=== PATIENT | female | born 1935 | race Caucasian/White ===

== ENCOUNTER 2021-04-28 13:15 | Outpatient (REF) | payer MEDICARE, SELFPAY ==
[2021-04-28 14:54] LABS: Syphilis Screen Nonreactive (Nonreactive)
[2021-04-28 15:00] LABS: Vitamin B12 357 pg/mL (200-900)
[2021-04-28 15:16] LABS: Erythrocyte Sedimentation Rate 12 MM/HR (0-20)
[2021-04-29 08:37] LABS: Lyme Abs Screen <0.90 index
== END 2021-04-28 13:16 | disposition home or self-care (01) ==
LOC: HO.LAB 13:15
PROVIDERS: Visit Provider Psychiatry & Neurology Neurology
DX: G30.9 Alzheimer's disease, unspecified (principal); I67.89 Other cerebrovascular disease
CPT/HCPCS: 36415; 82607; 85652; 86617; 86618; 86780